=== PATIENT | female | born 1980 | race Caucasian/White ===

== ENCOUNTER 2016-08-02 15:59 | Emergency (ER) | payer MEDICARE, MEDICAID ==
[~2016-08-02] VITALS: Ht 165.1 cm; Wt 76.8 kg
[~2016-08-02 15:59] MED LIST: BUPR100T6 PO; CALC667C3 PO; DIAZ5TAB PO; HYDR200T PO; LIDO700A30 TD; METO-93 PO; MULT-26 PO; OMEP-110; OXYC20TA2 PO; PRED5TAB; PREG150C PO; PROM25SU34 RC; TIZA4TAB PO; TRAZ100T15 PO; VALA500T PO; WARF2TAB7 PO; WARF5TAB7 PO; phenergan PO
[2016-08-02 16:59] LABS: ASPARTATE AMINO TRANSFERASE 7 U/L (15-37); BLOOD UREA NITROGEN 64 mg/dL (7-18)
[2016-08-02] MEDS ORDERED: ONDANSETRON 2MG/ML, 2ML ONE (18:01)
[2016-08-02] MEDS ORDERED: PROM25TA10 PO (18:50)
[2016-08-02] MEDS ORDERED: ONDANSETRON 2MG/ML, 2ML IVPush ONE (19:00)
[2016-08-02] MEDS ORDERED: OXYcodone/APAP 5/325MG TABLET PO ONE (19:00)
[2016-08-02] MEDS ORDERED: OXYcodone/APAP 5/325MG TABLET ONE (19:21)
[2016-08-02 20:57] VITALS: BP 144/96
== END 2016-08-02 20:59 | disposition home or self-care (01) ==
LOC: ED 20:58
DX: M47.896 Other spondylosis, lumbar region (principal); M47.894 Other spondylosis, thoracic region; I12.0 Hypertensive chronic kidney disease with stage 5 chronic kidney disease or end stage renal disease; N18.6 End stage renal disease; Z99.2 Dependence on renal dialysis
CPT/HCPCS: 36415; 71010; 74177; 80053; 81001; 84703; 85025; 96374; 99285; J2405

== ENCOUNTER 2018-06-25 23:19 | Inpatient (IN) | payer MEDICAID, MEDICARE ==
[~2018-06-25] VITALS: Ht 165.1 cm; Wt 84.8 kg
[~2018-06-25 23:19] MED LIST changes: -HYDR200T PO; +HYDR200T72 PO; +PROM25TA10 PO; +TRAZ-137 PO; -TRAZ100T15 PO; +WARF-36 PO; -WARF2TAB7 PO; +WARF2TAB99 PO; -WARF5TAB7 PO
--- NOTE | 2018-06-25 23:34 | NUR ---
ASSESSMENT MADE. CHART UP FOR MD TO SEE.
--- NOTE | 2018-06-25 23:41 | NUR ---
PA AT BEDSIDE.
[2018-06-25] MEDS ORDERED: ONDANSETRON 2MG/ML, 2ML ONE (23:53)
[2018-06-25] MEDS ORDERED: HYDROmorphone 1 MG/ML, 1ML VIAL ONE (23:54)
[2018-06-26] MEDS ORDERED: ONDANSETRON 2MG/ML, 2ML IVPush ONE
[2018-06-26] MEDS: HYDROmorphone 2 MG/ML, 1ML IVPush PRN ×2 (00:16→01:56)
--- NOTE | 2018-06-26 00:18 | NUR ---
PORT ACCESSED. BLOOD DRAWN. MEDICATED. URINE SENT TO LAB.
[2018-06-26 00:26] LABS: BASOPHILS # (AUTO) 0.04 x10^3/uL (0-0.1); BASOPHILS % (AUTO) 1 % (0-1); EOSINOPHILS # (AUTO) 0.11 x10^3/uL (0-0.4); EOSINOPHILS % (AUTO) 2 % (1-7); LYMPHOCYTES # (AUTO) 1.27 x10^3/uL (1-3.4); LYMPHOCYTES % (AUTO) 22 % (22-44); MD NO; MEAN CORPUSCULAR HEMOGLOBIN 30.5 pg (27.0-34.8); MEAN CORPUSCULAR HGB CONC 32.5 g/dL (32.4-35.8); MEAN CORPUSCULAR VOLUME 93.7 fL (80-100); MEAN PLATELET VOLUME 8.6 fL (7.4-10.4); MONOCYTES # (AUTO) 0.51 x10^3/uL (0.2-0.8); MONOCYTES % (AUTO) 9 % (2-9); NEUTROPHILS % (AUTO) 67 % (42-75); PLATELET COUNT 150 x10^3/uL (130-400); RED CELL DISTRIBUTION WIDTH 14.3 % (9.6-15.2)
[2018-06-26 00:28] LABS: HCG UR SG 1.007 (1.003-1.030)
[2018-06-26 00:29] LABS: MICROSCOPIC INDICATED
[2018-06-26 00:34] LABS: ALANINE AMINOTRANSFERASE 17 U/L (12-78); ALBUMIN 2.5 g/dL (3.4-5.0); ANION GAP 13 mmol/L (5-15); CHLORIDE 109 mmol/L (98-107); CREATININE 4.62 mg/dL (0.55-1.02)
[2018-06-26 00:36] LABS: ALKALINE PHOSPHATASE 88 U/L (45-117); BILIRUBIN,TOTAL 0.4 mg/dL (0.2-1.0); TOTAL PROTEIN 5.2 g/dL (6.4-8.2)
--- NOTE | 2018-06-26 00:37 | NUR ---
PT REPORT FROM DEVYN LLANOS. THIS RN TO ASSUME CARE OF PT. AWAITING US AT THIS TIME. NO IMMEDIATE NEEDS OF PT.
[2018-06-26 00:46] LABS: CALCIUM 5.5 mg/dL (8.5-10.1)
[2018-06-26 00:48] LABS: CULTURE INDICATED? NO
[2018-06-26] MEDS ORDERED: CALCIUM GLUCONATE 0.46MEQ/1ML IVPush ONE (01:00)
[2018-06-26] MEDS ORDERED: HYDROmorphone 1 MG/ML, 1ML VIAL ONE (01:52)
--- NOTE | 2018-06-26 01:56 | NUR ---
PT C/O INCREASED PAIN. GIVEN DILAUDID PER MAY.
[2018-06-26] MEDS ORDERED: PROMETHAZINE 25 MG/ML, 1ML IM ONE (02:00)
--- NOTE | 2018-06-26 02:59 | NUR ---
NO IMMEDIATE NEEDS AT THIS TIME. CALL LIGHT WITHIN REACH. AWAITING ADM ORDER.
[2018-06-26] MEDS ORDERED: ONDANSETRON ODT 4 MG PO PRN (03:30)
--- NOTE | 2018-06-26 03:56 | NUR ---
AWAITING ADM BED ON PT AT THIS TIME. NO IMMEDIATE NEEDS FROM PT. CALL LIGHT WITHIN REACH.
[2018-06-26 05:00] VITALS: BP 127/86
[2018-06-26] MEDS ORDERED: LACO100T PO ×2 (05:08→16:00)
[2018-06-26 07:46] VITALS: BP 131/85
[2018-06-26] MEDS ORDERED: LACOSAMIDE 100 MG in SODIUM CHLORIDE 0.9% 100 ML IV SCH (09:00)
[2018-06-26] MEDS ORDERED: PREGABALIN 150 MG CAPSULE PO SCH (09:00)
[2018-06-26] MEDS ORDERED: DOCUSATE 100 MG CAPSULE ONE (09:10)
[2018-06-26] MEDS: DOCUSATE 100 MG CAPSULE PO SCH ×2 (09:14→20:26)
[2018-06-26] MEDS: LACOSAMIDE 50 MG TABLET PO SCH ×2 (09:14→20:26)
[2018-06-26] MEDS: OXYcodone IR 5MG TABLET PO PRN ×3 (09:14→23:55)
[2018-06-26] MEDS ORDERED: DEXTROSE 4 GM TAB.CHEW PO PRN (10:00)
[2018-06-26] MEDS ORDERED: DEXTROSE 50%, 50ML SYRINGE IVPush PRN (10:00)
[2018-06-26] MEDS ORDERED: GLUCAGON 1 MG IM PRN (10:00)
[2018-06-26] MEDS: PROMETHAZINE 25MG TABLET PO PRN ×2 (10:54→23:55)
[2018-06-26 12:42] VITALS: BP 127/85
[2018-06-26] MEDS ORDERED: PREG75CA PO (15:09)
[2018-06-26] MEDS ORDERED: AMLO10TA8 PO (15:09)
[2018-06-26] MEDS ORDERED: SEVE800T8 PO (15:09)
[2018-06-26] MEDS ORDERED: ERGOCALCIFEROL 50,000 UNIT CAPSULE PO SCH (16:00)
[2018-06-26] MEDS ORDERED: PREGABALIN 75 MG CAPSULE ONE (16:10)
[2018-06-26] MEDS: SEVELAMER CARBONATE 800MG TAB PO SCH (16:30)
[2018-06-26 18:56] VITALS: BP 114/68
[2018-06-26] MEDS: METHOCARBAMOL 500 MG TABLET PO PRN (20:25)
[2018-06-26] MEDS: PREGABALIN 150 MG CAPSULE PO SCH (20:26)
[2018-06-26] MEDS: SODIUM CHLORIDE FLUSH 10ML SYR IVF SCH (20:28)
[2018-06-26] MEDS ORDERED: HYDROXYCHLOROQUINE 200 MG TABLET PO SCH (21:00)
[2018-06-26] MEDS ORDERED: TRAZODONE 100MG TABLET PO SCH (21:00)
[2018-06-26] MEDS ORDERED: TIZANIDINE 4MG TABLET PO SCH (21:00)
[2018-06-27 02:35] VITALS: BP 129/85
[2018-06-27] MEDS: METHOCARBAMOL 500 MG TABLET PO PRN ×2 (03:26→12:46)
[2018-06-27 07:12] LABS: ALBUMIN 2.9 g/dL (3.4-5.0); ANION GAP 11 mmol/L (5-15); CALCIUM 7.8 mg/dL (8.5-10.1); CHLORIDE 101 mmol/L (98-107); CREATININE 9.31 mg/dL (0.55-1.02)
[2018-06-27 07:37] LABS: BASOPHILS # (AUTO) 0.07 x10^3/uL (0-0.1); BASOPHILS % (AUTO) 1 % (0-1); EOSINOPHILS % (AUTO) 3 % (1-7); LYMPHOCYTES # (AUTO) 1.54 x10^3/uL (1-3.4); LYMPHOCYTES % (AUTO) 26 % (22-44); MD SCAN; MEAN CORPUSCULAR HEMOGLOBIN 31.4 pg (27.0-34.8); MEAN CORPUSCULAR HGB CONC 33.6 g/dL (32.4-35.8); MEAN CORPUSCULAR VOLUME 93.3 fL (80-100); MEAN PLATELET VOLUME 8.8 fL (7.4-10.4); MONOCYTES # (AUTO) 0.56 x10^3/uL (0.2-0.8); MONOCYTES % (AUTO) 10 % (2-9); NEUTROPHILS # (AUTO) 3.49 x10^3/uL (1.8-6.8); NEUTROPHILS % (AUTO) 60 % (42-75); PLATELET COUNT 118 x10^3/uL (130-400); RED BLOOD COUNT 3.87 x10^6/uL (3.82-5.3); RED CELL DISTRIBUTION WIDTH 13.8 % (9.6-15.2)
[2018-06-27] MEDS: OXYcodone IR 5MG TABLET PO PRN ×2 (08:08→13:21)
[2018-06-27] MEDS: PROMETHAZINE 25MG TABLET PO PRN (08:12)
[2018-06-27] MEDS: SEVELAMER CARBONATE 800MG TAB PO SCH ×2 (08:30→12:46)
[2018-06-27] MEDS ORDERED: METH500T7 PO (08:47)
[2018-06-27] MEDS ORDERED: CHOL2000 PO (08:47)
[2018-06-27] MEDS: DOCUSATE 100 MG CAPSULE PO SCH (09:00)
[2018-06-27] MEDS: LACOSAMIDE 50 MG TABLET PO SCH (12:46)
[2018-06-27] MEDS: PREGABALIN 150 MG CAPSULE PO SCH (12:46)
[2018-06-27] MEDS: SODIUM CHLORIDE FLUSH 10ML SYR IVF SCH (12:47)
== END 2018-06-27 14:03 | disposition home or self-care (01) | DRG 545 ==
LOC: ED 23:59 → EDIP 06-26 03:09 → 4EST 06-26 05:11 → DCLOUNGE 06-27 13:50
PROVIDERS: ADMIT Internal Medicine; ATTEND Internal Medicine
PROC: 5A1D70Z Performance of Urinary Filtration, Intermittent, Less than 6 Hours Per Day (ICD-10-PCS; principal; 2018-06-27)
DX: M32.9 Systemic lupus erythematosus, unspecified (principal); N18.6 End stage renal disease; I12.0 Hypertensive chronic kidney disease with stage 5 chronic kidney disease or end stage renal disease; D63.1 Anemia in chronic kidney disease; E16.2 Hypoglycemia, unspecified; E83.51 Hypocalcemia; F17.210 Nicotine dependence, cigarettes, uncomplicated; G40.909 Epilepsy, unspecified, not intractable, without status epilepticus; G89.29 Other chronic pain; M79.7 Fibromyalgia; M89.9 Disorder of bone, unspecified; Z96.641 Presence of right artificial hip joint; Z99.2 Dependence on renal dialysis
CPT/HCPCS: 36415; 71045; 74176; 80048; 80053; 81001; 81025; 82040; 82306; 82310; 82330; 82962; 83690; 83735; 83970; 84100; 84443; 84703; 85025; 93005; 96374; 96375; 96376; 99285; G0378; J0610; J1170; J2405; Q0169

== ENCOUNTER 2018-07-27 04:38 | Inpatient (IN) | payer MEDICARE ==
[~2018-07-27] VITALS: Ht 165.1 cm; Wt 78.4 kg
[~2018-07-27 04:38] MED LIST changes: +AMLO10TA8 PO; +CHOL2000 PO; +LACO100T PO; +METH500T7 PO; +PREG75CA PO; +SEVE800T8 PO
--- NOTE | 2018-07-27 04:54 | NUR ---
PT PRESENTED WITH REPORT OF A HX OF ESRD, HAS "SKIPPED A FEW DIALYSIS APPTS", LAST DIALYSIS LAST MON, PT ALSO HAS A HX OF LUPUS, REPORTS GENERALIZED JOINT AND MUSCLE WEAKNESS AND TWITCHING THAT STARTED 3 WEEKS AGO. MONITORS APPLIED, SIDERAILS UP X2, CALL LIGHT WITHIN REACH
[2018-07-27] MEDS ORDERED: AMLO10TA8 PO (05:02)
--- NOTE | 2018-07-27 05:20 | NUR ---
seizure precautions in place. pt to xray
--- NOTE | 2018-07-27 05:50 | NUR ---
URINE SAMPLE TAKEN TO LAB
[2018-07-27 05:58] LABS: BASOPHILS # (AUTO) 0.05 x10^3/uL (0-0.1); BASOPHILS % (AUTO) 1 % (0-1); EOSINOPHILS # (AUTO) 0.35 x10^3/uL (0-0.4); EOSINOPHILS % (AUTO) 5 % (1-7); LYMPHOCYTES # (AUTO) 0.86 x10^3/uL (1-3.4); LYMPHOCYTES % (AUTO) 12 % (22-44); MD NO; MEAN CORPUSCULAR HEMOGLOBIN 30.9 pg (27.0-34.8); MEAN CORPUSCULAR VOLUME 90.8 fL (80-100); MEAN PLATELET VOLUME 8.4 fL (7.4-10.4); MONOCYTES % (AUTO) 7 % (2-9); NEUTROPHILS # (AUTO) 5.18 x10^3/uL (1.8-6.8); NEUTROPHILS % (AUTO) 75 % (42-75); PLATELET COUNT 152 x10^3/uL (130-400); RED CELL DISTRIBUTION WIDTH 13.2 % (9.6-15.2)
[2018-07-27 06:03] LABS: ALANINE AMINOTRANSFERASE 10 U/L (12-78); ALBUMIN 3.4 g/dL (3.4-5.0); ANION GAP 17 mmol/L (5-15); CHLORIDE 102 mmol/L (98-107)
[2018-07-27 06:08] LABS: ALKALINE PHOSPHATASE 111 U/L (45-117); BILIRUBIN,TOTAL 0.4 mg/dL (0.2-1.0); TOTAL PROTEIN 7.7 g/dL (6.4-8.2)
[2018-07-27 06:14] LABS: MICROSCOPIC AUTO
[2018-07-27 06:15] LABS: CULTURE INDICATED? YES
--- NOTE | 2018-07-27 06:37 | NUR ---
PT RESTING CALMLY, MONITORS IN PLACE, CALL LIGHT WITHIN REACH. AWAITING LAB RESULTS
[2018-07-27] MEDS ORDERED: SODIUM CHLORIDE FLUSH 10ML SYR IVF ONE (07:00)
[2018-07-27] MEDS ORDERED: CEFTRIAXONE PMX 1GM/50ML 50 ML IV ONE (07:00)
--- NOTE | 2018-07-27 07:04 | NUR ---
RECEIVED REPORT AND ASSUMED PT. CARE. PT. REMAINS MONITORED. VSS. PT. HAS THE SEIZURE PRECAUTIONS IN PLACE. AWAITING DISPOSITION.
[2018-07-27] MEDS ORDERED: CEFTRIAXONE PMX 1GM/50ML 50 ML ONE (07:08)
[2018-07-27] MEDS ORDERED: HYDROmorphone 2 MG/ML, 1ML ONE (07:21)
--- NOTE | 2018-07-27 07:28 | NUR ---
PT. WAS MEDICATED FOR PAIN. PT. REMAINS MONITORED. AWAITING BLOOD CULTURES THEN IV ABX WILL BE GIVEN. IV ACCESS ESTABLISHED.
[2018-07-27] MEDS ORDERED: HYDROmorphone 1 MG/ML, 1ML INJ IVPush PRN (07:30)
[2018-07-27] MEDS ORDERED: HYDROmorphone 2 MG/ML, 1ML IVPush PRN (07:30)
--- NOTE | 2018-07-27 08:08 | NUR ---
RN ALERTED THE LAB TO DRAW BLOOD CULTURES X 2 SO THAT SHE COULD START IV ABX.
--- NOTE | 2018-07-27 08:46 | NUR ---
BLOOD CULTURES WERE DRAWN. PT.'S IV ABX ARE NOW INFUSING. PT. REMAINS MONITORED WITH STABLE VITALS. PT. STATES RELIEF FROM PAIN MEDICATIONS.
--- NOTE | 2018-07-27 09:50 | NUR ---
REPORT CALLED TO ARLINE LLANOS. PT. IS READY FOR TRANSPORT TO THE FLOOR.
[2018-07-27 10:27] VITALS: BP 134/83
[2018-07-27] MEDS ORDERED: ACETAMINOPHEN 325 MG TABLET PO PRN (11:30)
[2018-07-27] MEDS ORDERED: DOCUSATE 100 MG CAPSULE PO PRN (11:30)
[2018-07-27] MEDS ORDERED: hydrALAzine 20 MG/ML, 1ML IVPush PRN (11:30)
[2018-07-27] MEDS ORDERED: BISACODYL 10 MG SUPP PR PRN (11:30)
[2018-07-27] MEDS ORDERED: LABETALOL 5MG/ML, 20ML IVPush PRN (11:30)
[2018-07-27] MEDS ORDERED: PHARMACY MAY ADJ FOR RENAL FX MC PRN (11:30)
[2018-07-27] MEDS ORDERED: POLYETHYLENE GLYCOL 17 GM PACKET PO PRN (11:30)
[2018-07-27] MEDS: CEFTRIAXONE PMX 1GM/50ML 50 ML IV SCH (12:08)
[2018-07-27 12:09] LABS: INTERNATIONAL NORMALIZED RATIO 0.95 (0.93-1.1)
[2018-07-27 12:20] LABS: FREE T4 (FREE THYROXINE) 0.83 ng/dL (0.76-1.46); THYROID STIMULATING HORMONE 2.1 mIU/L (0.358-3.740)
[2018-07-27] MEDS: OXYcodone IR 5MG TABLET PO PRN ×2 (13:18→21:21)
[2018-07-27] MEDS: PROMETHAZINE 25MG TABLET PO PRN ×2 (14:04→21:21)
[2018-07-27 14:08] VITALS: BP 143/81
[2018-07-27] MEDS: SEVELAMER CARBONATE 800MG TAB PO SCH (17:41)
[2018-07-27] MEDS ORDERED: OXYcodone IR 5MG TABLET PO ONE (18:00)
[2018-07-27 19:17] VITALS: BP 142/85
[2018-07-27] MEDS ORDERED: TIZANIDINE 4MG TABLET PO SCH (21:00)
[2018-07-27] MEDS ORDERED: HYDROXYCHLOROQUINE 200 MG TABLET PO SCH (21:00)
[2018-07-27] MEDS: LACOSAMIDE 50 MG TABLET PO SCH (22:26)
[2018-07-28 02:45] VITALS: BP 148/94
[2018-07-28] MEDS: OXYcodone IR 5MG TABLET PO PRN ×3 (03:52→15:07)
[2018-07-28 04:34] LABS: BASOPHILS # (AUTO) 0.02 x10^3/uL (0-0.1); BASOPHILS % (AUTO) 1 % (0-1); EOSINOPHILS # (AUTO) 0.17 x10^3/uL (0-0.4); EOSINOPHILS % (AUTO) 6 % (1-7); LYMPHOCYTES # (AUTO) 0.88 x10^3/uL (1-3.4); LYMPHOCYTES % (AUTO) 29 % (22-44); MD NO; MEAN CORPUSCULAR HEMOGLOBIN 31.1 pg (27.0-34.8); MEAN CORPUSCULAR HGB CONC 34.3 g/dL (32.4-35.8); MEAN CORPUSCULAR VOLUME 90.8 fL (80-100); MEAN PLATELET VOLUME 8.4 fL (7.4-10.4); MONOCYTES # (AUTO) 0.33 x10^3/uL (0.2-0.8); MONOCYTES % (AUTO) 11 % (2-9); NEUTROPHILS # (AUTO) 1.61 x10^3/uL (1.8-6.8); NEUTROPHILS % (AUTO) 53 % (42-75); PLATELET COUNT 154 x10^3/uL (130-400); RED BLOOD COUNT 3.63 x10^6/uL (3.82-5.3); RED CELL DISTRIBUTION WIDTH 13.7 % (9.6-15.2)
[2018-07-28 04:38] LABS: ALANINE AMINOTRANSFERASE 14 U/L (12-78); ALBUMIN 3.3 g/dL (3.4-5.0); ANION GAP 9 mmol/L (5-15); CALCIUM 8.7 mg/dL (8.5-10.1); CHLORIDE 100 mmol/L (98-107)
[2018-07-28 04:40] LABS: ALKALINE PHOSPHATASE 107 U/L (45-117); BILIRUBIN,TOTAL 0.7 mg/dL (0.2-1.0); TOTAL PROTEIN 7.6 g/dL (6.4-8.2)
[2018-07-28 07:54] VITALS: BP 157/87
[2018-07-28] MEDS ORDERED: CHOLECALCIFEROL 5,000u TAB PO SCH (09:00)
[2018-07-28] MEDS ORDERED: AMLODIPINE 10 MG TAB PO SCH (09:00)
[2018-07-28] MEDS ORDERED: MULTIVITAMIN 1 TABLET PO SCH (09:00)
[2018-07-28] MEDS: SEVELAMER CARBONATE 800MG TAB PO SCH ×3 (09:18→17:38)
[2018-07-28] MEDS: LACOSAMIDE 50 MG TABLET PO SCH (09:19)
[2018-07-28] MEDS: CEFTRIAXONE PMX 1GM/50ML 50 ML IV SCH (13:12)
[2018-07-28 15:04] VITALS: BP 135/84
[2018-07-28] MEDS: PROMETHAZINE 25MG TABLET PO PRN (15:08)
[2018-07-28] MEDS ORDERED: PREG75CA PO (16:30)
[2018-07-28 17:15] LABS: BASOPHILS # (AUTO) 0.04 x10^3/uL (0-0.1); BASOPHILS % (AUTO) 1 % (0-1); EOSINOPHILS # (AUTO) 0.14 x10^3/uL (0-0.4); EOSINOPHILS % (AUTO) 3 % (1-7); LYMPHOCYTES # (AUTO) 0.74 x10^3/uL (1-3.4); LYMPHOCYTES % (AUTO) 17 % (22-44); MD NO; MEAN CORPUSCULAR HEMOGLOBIN 31.6 pg (27.0-34.8); MEAN CORPUSCULAR HGB CONC 34.8 g/dL (32.4-35.8); MEAN CORPUSCULAR VOLUME 90.7 fL (80-100); MONOCYTES # (AUTO) 0.48 x10^3/uL (0.2-0.8); MONOCYTES % (AUTO) 11 % (2-9); NEUTROPHILS # (AUTO) 3.02 x10^3/uL (1.8-6.8); NEUTROPHILS % (AUTO) 68 % (42-75); PLATELET COUNT 145 x10^3/uL (130-400); RED CELL DISTRIBUTION WIDTH 13.1 % (9.6-15.2)
== END 2018-07-28 18:54 | disposition home health service (06) | DRG 917 ==
LOC: ED 05:35 → INTOOBSV 08:58 → EDIP 08:58 → 4WST 10:04 → OBSVTOIN 07-28 12:40
PROVIDERS: ADMIT Internal Medicine; ATTEND Internal Medicine
PROC: 5A1D70Z Performance of Urinary Filtration, Intermittent, Less than 6 Hours Per Day (ICD-10-PCS; 2018-07-27)
PROC: 5A1D70Z Performance of Urinary Filtration, Intermittent, Less than 6 Hours Per Day (ICD-10-PCS; principal; 2018-07-28)
DX: T42.6X1A Poisoning by other antiepileptic and sedative-hypnotic drugs, accidental (unintentional), initial encounter (principal); N18.6 End stage renal disease; N17.9 Acute kidney failure, unspecified; N39.0 Urinary tract infection, site not specified; I12.0 Hypertensive chronic kidney disease with stage 5 chronic kidney disease or end stage renal disease; D63.1 Anemia in chronic kidney disease; F17.200 Nicotine dependence, unspecified, uncomplicated; G40.909 Epilepsy, unspecified, not intractable, without status epilepticus; Z96.641 Presence of right artificial hip joint; M79.7 Fibromyalgia; W18.39XA Other fall on same level, initial encounter; M32.9 Systemic lupus erythematosus, unspecified; R04.0 Epistaxis; S70.01XA Contusion of right hip, initial encounter; Z80.42 Family history of malignant neoplasm of prostate; Z91.15 Patient's noncompliance with renal dialysis; Z99.2 Dependence on renal dialysis; Z88.8 Allergy status to other drugs, medicaments and biological substances; Y93.89 Activity, other specified; Y92.89 Other specified places as the place of occurrence of the external cause
CPT/HCPCS: 36415; 70450; 80053; 81001; 83735; 84100; 84439; 84443; 84703; 85025; 85610; 85730; 86705; 86706; 87040; 87086; 87340; 96374; G0378; J0696; J1170; Q0169